=== PATIENT | male | born 1960 | race Caucasian/White ===

== ENCOUNTER → 2019-12-24 | Day surgery (SDC) | payer BC ==
--- NOTE | 2019-12-23 11:41 | PCM.PREANE ---
Preanesthetic Assessment - Anesthesia/Transfusion/Family Hx Anesthesia History: Prior Anesthesia Without Reaction Family History of Anesthesia Reaction: No Transfusion History: No Prior Transfusion(s) Intubation History: Unknown - Review of Systems General: No Symptoms Pulmonary: No Symptoms (ETOH: 2-3 beers per night) Cardiovascular: No Symptoms (Elevated cholesterol/History of HTN) Gastrointestinal: No Symptoms (GERD (history of)) Neurological: No Symptoms Other: Reports: None, Easy Bruising, Sinus Problem (Allergic rhinitis) - Physical Assessment NPO Status Date: 12/24/19 NPO Status Time: 04:00 (bowel prep) Vital Signs: HR:91 Sat:96% Temp:97.6 Resp:16 B/P:129/88 Height: 1.85 m Weight: 82 kg ASA Class: 2 Mental Status: Alert & Oriented x3 Airway Class: Mallampati = 2 Dentition: Reports: Normal Dentition, Medley(s), Caries Thyro-Mental Finger Breadths: 3 Mouth Opening Finger Breadths: 3 ROM/Head Extension: Full Lungs: Clear to Auscultation, Normal Respiratory Effort Cardiovascular: Regular Rate, Regular Rhythm, No Murmurs - Lab Values: All labs reviewed and noted and within acceptable ranges to proceed with scheduled procedure. 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 - Allergies Allergies/Adverse Reactions: Allergies Allergy/AdvReac Type Severity Reaction Status Date / Time bee venom protein (honey bee) Allergy Cannot Verified 12/23/19 14:30 Remember house dust Allergy Cannot Verified 12/23/19 14:30 Remember pollen extracts Allergy Cannot Verified 12/23/19 14:30 Remember - Anesthesia Plan Pre-Op Medication Ordered: None - Acknowledgements Anesthesia Type Planned: MAC Pt an Appropriate Candidate for the Planned Anesthesia: Yes Alternatives and Risks of Anesthesia Discussed w Pt/Guardian: Yes Pt/Guardian Understands and Agrees with Anesthesia Plan: Yes PreAnesthesia Questionnaire HEENT History: Reports: Impaired Vision, Other (See Below) Other HEENT History: wears glasses Cardiovascular History: Reports: High Cholesterol, Hypertension Respiratory History: Reports: Other (See Below) Other Respiratory History: cough, acute bronchitis Gastrointestinal History: Reports: GERD, Hemorrhoids, Other (See Below) Other Gastrointestinal History: globus sensation Genitourinary History: Reports: None 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 Musculoskeletal History: Reports: Other (See Below) Other Musculoskeletal History: congential absence of pectoral muscle, hammertoe, left forearm, left 5th toe amputation Neurological History: Reports: None Psychiatric History: Reports: None Endocrine/Metabolic History: Reports: None Hematologic History: Reports: None Immunologic History: Reports: None Oncologic (Cancer) History: Reports: None Dermatologic History: Reports: None - Past Surgical History Head Surgeries/Procedures: Reports: None HEENT Surgical History: Reports: Naso-Sinus Surgery, Oral Surgery Cardiovascular Surgical History: Reports: None Respiratory Surgical History: Reports: None GI Surgical History: Reports: Colonoscopy Female Surgical History: Reports: None Male Surgical History: Reports: None Endocrine Surgical History: Reports: None Neurological Surgical History: Reports: None Musculoskeletal Surgical History: Reports: None Oncologic Surgical History: Reports: None Dermatological Surgical History: Reports: None - HOME MEDS Home Medications: Home Meds EPINEPHrine [Epipen] 1 dose IM ONETIME PRN 02/12/18 [History] Rosuvastatin [Crestor] 10 mg PO DAILY 02/12/18 [History] Triamcinolone Acetonide [Nasacort] 1 spray NASBOTH BID 02/12/18 [History] Fish Oil/DHA/EPA [Fish Oil 1,200 MG] 1 cap PO DAILY 02/13/18 [History] Loratadine [Claritin] 10 mg PO DAILY 12/23/19 [History] - CURRENT (IN HOUSE) MEDS Current Meds: Current Medications Lactated Ringer's (Ringers, Lactated) 1,000 mls @ 125 mls/hr IV ASDIRECTED BAILEY Stop: 12/24/19 23:00 Lidocaine/Sodium Bicarbonate (Buffered Lidocaine 1% In Ns 8.4%) 0.25 ml IDERM ONETIME PRN PRN Reason: Prior to IV Start Stop: 12/24/19 18:00 Sodium Chloride (Saline Flush) 10 ml FLUSH ASDIRECTED PRN PRN Reason: Keep Vein Open Stop: 12/24/19 18:00
[~2019-12-24] MED LIST: Lactated Ringers 1,000 ML IV SCH; Lidocaine 1% 2 ML ONE; Lidocaine 1%/Sod Bicarbonate in NS 8.4% 1 ML Syringe IDERM PRN; Propofol 200 MG/20 ML SDV ONE; Sodium Chloride 0.9% 10 ML Syringe FLUSH PRN
--- NOTE | 2019-12-24 11:40 | PCM48HPAN ---
Post Anesthesia Note - EVALUATION WITHIN 48HRS OF ANESTHETIC Vital Signs in Normal Range: Yes Patient Participated in Evaluation: Yes Respiratory Function Stable: Yes Airway Patent: Yes Cardiovascular Function Stable: Yes Hydration Status Stable: Yes Pain Control Satisfactory: Yes Nausea and Vomiting Control Satisfactory: Yes Mental Status Recovered: Yes Vital Signs: Last Vital Signs Temp 36.4 C 12/24/19 08:50 Pulse 91 12/24/19 08:50 Resp 16 12/24/19 08:50 BP 129/88 12/24/19 08:50 Pulse Ox 96 12/24/19 08:50
--- NOTE | 2019-12-25 09:34 | PCM.PRNOTE ---
- Free Text/Narrative Note: Date: 12/24/2019 Procedure: screening colonoscopy Endoscopist: Dangelo Whittington MD Findings: good prep. Cecum reached. Three polyps identified and removed. Moderate diverticulosis. Internal hemorrhoids. Detailed Report: The patient was taken to the endoscopy suite and placed in left lateral decubitus position. Time out was performed. The anus appeared normal. Digital exam was unremarkable. The colonoscope was lubricated and inserted into the anus. The scope was advanced to the cecum with ease. The appendiceal orifice and ileocecal valve were seen. The prep was excellent. The scope was slowly withdrawn and mucosal surfaces carefully inspected. Three small polyps were identified and biopsied with forceps. The bases were fulgurated. Moderate diverticulosis of the sigmoid colon was noted. There were mild internal hemorrhoids on retroflexion within the rectum. Air was evacuated and the scope withdrawn. The patient tolerated the procedure well.
== END | disposition home or self-care (01) ==
LOC: JD.SDS 08:42
PROVIDERS: ATTEND Surgery
DX: Z12.11 Encounter for screening for malignant neoplasm of colon (principal); D12.3 Benign neoplasm of transverse colon; K57.30 Diverticulosis of large intestine without perforation or abscess without bleeding; K64.8 Other hemorrhoids; I10 Essential (primary) hypertension; E78.00 Pure hypercholesterolemia, unspecified; E78.2 Mixed hyperlipidemia; Z79.899 Other long term (current) drug therapy; Z91.030 Bee allergy status
CPT/HCPCS: 45380; J2001; J2704; J7120; 00812

== ENCOUNTER 2024-10-13 08:37 | Day surgery (SDC) | payer MEDICARE ==
[~2024-10-13 08:37] MED LIST changes: -Lactated Ringers 1,000 ML IV SCH; -Lidocaine 1% 2 ML ONE; -Lidocaine 1%/Sod Bicarbonate in NS 8.4% 1 ML Syringe IDERM PRN; -Propofol 200 MG/20 ML SDV ONE; +Sodium Chloride 0.9% 10 ML Syringe FLUSH SCH
[2024-10-13] MEDS: Lactated Ringers 1,000 ML IV SCH (09:10)
[2024-10-13] MEDS ORDERED: Propofol 200 MG/20 ML SDV ONE ×2 (10:21→10:22)
[2024-10-13] MEDS ORDERED: Midazolam 1 MG/ML 2 ML SDV ONE (10:22)
[2024-10-13] MEDS ORDERED: Lidocaine 1% 4 ML ONE (10:22)
== END 2024-10-13 11:40 | disposition home or self-care (01) ==
LOC: JD.SDS 08:37
PROVIDERS: ATTEND Surgery
DX: Z12.11 Encounter for screening for malignant neoplasm of colon (principal); D12.2 Benign neoplasm of ascending colon; D12.3 Benign neoplasm of transverse colon; I10 Essential (primary) hypertension; E78.2 Mixed hyperlipidemia; Z79.899 Other long term (current) drug therapy; Z91.030 Bee allergy status; Z91.048 Other nonmedicinal substance allergy status
CPT/HCPCS: 45380; 45385; J2003; J2250; J2704; J7120; 00811; 88305